=== PATIENT | male | born 1955 | race Caucasian/White ===

== ENCOUNTER 2017-08-13 05:42 | Inpatient (IN) | payer BC ==
[2017-08-08 16:45] LABS: BASOPHILS # (AUTO) 0.1 K/uL (0.0-0.2); LYMPHOCYTES # (AUTO) 1.9 K/uL (1.0-5.5); MONOCYTES # (AUTO) 0.6 K/uL (0.0-1.0)
[2017-08-08 16:49] LABS: BASOPHILS % (AUTO) 0.9 % (0.0-2.0); EOSINOPHILS # (AUTO) 0.6 K/uL (0.0-0.4); EOSINOPHILS % (AUTO) 7.5 % (0.0-4.0); HEMOGLOBIN 14.5 g/dL (14.0-18.0); LYMPHOCYTES % (AUTO) 25.4 % (20.5-51.5); MEAN CORPUSCULAR HEMOGLOBIN 32 pg (27-31); MEAN CORPUSCULAR HGB CONC 35 % (32-36); MEAN CORPUSCULAR VOLUME 94 fL (79.0-98.0); MONOCYTES % (AUTO) 7.6 % (1.7-9.3); NEUTROPHILS # (AUTO) 4.4 K/uL (1.8-7.7); NEUTROPHILS % (AUTO) 58.6 % (40.0-70.0); PLATELET COUNT (AUTO) 318 K/uL (130-430); RED BLOOD CELL COUNT(AUTO) 4.47 MIL/uL (4.2-6.2); WHITE BLOOD COUNT (AUTO) 7.6 K/uL (4.8-10.8)
[2017-08-08 16:54] LABS: BILIRUBIN,URINE NEGATIVE (NEGATIVE); BLOOD, URINE NEGATIVE (NEGATIVE); CLARITY/URINE CLEAR (CLEAR); COLOR,URINE YELLOW (YELLOW); GLUCOSE,URINE NEGATIVE (NEGATIVE); KETONES,URINE NEGATIVE (NEGATIVE); LEUKOCYTE ESTERASE ,URINE NEGATIVE (NEGATIVE); NITRITE, URINE NEGATIVE (NEGATIVE); PROTEIN URINE NEGATIVE (NEGATIVE); UROBILINOGEN,URINE 0.2 (0.2-1.0)
[2017-08-08 16:58] LABS: CALCIUM 8.8 mg/dL (8.4-11.0); CREATININE 0.93 mg/dL (0.55-1.30); POTASSIUM 3.9 mmol/L (3.5-5.1)
[2017-08-08 17:02] LABS: PROTHROMBIN TIME 10.4 SECS (9.5-12.5)
[~2017-08-13] VITALS: Ht 188 cm; Wt 106.6 kg
[~2017-08-13 05:42] MED LIST: LOSA50TA3 PO
[2017-08-13] MEDS ORDERED: CEFAZOLIN 2 GM IVPB PREMIX 50 ML IV ONE ×2 (06:02→07:00)
[2017-08-13] MEDS ORDERED: CELECOXIB 200 MG CAPSULE ONE (06:03)
[2017-08-13] MEDS ORDERED: GABAPENTIN 300 MG CAPSULE ONE (06:03)
[2017-08-13] MEDS ORDERED: ACETAMINOPHEN 500 MG TABLET ONE (06:04)
[2017-08-13] MEDS ORDERED: oxyCODONE HCL 10 MG TAB.ER.12H PO ONE ×2 (06:04→07:00)
[2017-08-13] MEDS ORDERED: TRANEXAMIC ACID 650 MG TABLET ONE (06:05)
[2017-08-13] MEDS ORDERED: LevALBUTEROL HCL 1.25 MG/0.5 ML *CONC.* VIAL.NEB (XOPENEX CONC.) INH ONE ×2 (06:15→06:26)
[2017-08-13] MEDS ORDERED: LIDOCAINE 2%, 20 ML MDV INJ ONE (06:35)
[2017-08-13] MEDS ORDERED: DEXAMETHASONE SOD PHOSPHATE 4 MG/ML VIAL IVP ONE (06:35)
[2017-08-13] MEDS ORDERED: SODIUM BICARBONATE 4% (NEUT) 5 ML VIAL INJ ONE (06:35)
[2017-08-13] MEDS ORDERED: ONDANSETRON HCL 4 MG/2 ML VIAL IVP ONE (06:35)
[2017-08-13] MEDS ORDERED: METOCLOPRAMIDE HCL 10 MG/2 ML VIAL IVP ONE (06:35)
[2017-08-13] MEDS ORDERED: EPINEPHrine 1 MG/ML AMP IVP ONE (06:35)
[2017-08-13] MEDS ORDERED: ISOSULFAN BLUE 5 ML VIAL (LYMPHAZURIN) INJ ONE (06:35)
[2017-08-13] MEDS ORDERED: ROPIVACAINE 0.2% (NAROPIN) PF SOLUTION 100 ML BOTTLE EP ONE (06:35)
[2017-08-13] MEDS ORDERED: ROCURONIUM BROMIDE 10 MG/ML (ZEMURON) IV ONE (06:35)
[2017-08-13] MEDS ORDERED: MIDAZOLAM HCL 5 MG/5 ML VIAL IVP ONE (06:35)
[2017-08-13] MEDS ORDERED: fentaNYL CITRATE 250 MCG/5 ML AMP IV ONE (06:35)
[2017-08-13] MEDS ORDERED: ROPIVACAINE HCL/PF 5 MG/ML 0.5% 30 ML VIAL INJ ONE (06:35)
[2017-08-13] MEDS ORDERED: SEVOFLURANE 15 MIN GAS INH ONE (06:35)
[2017-08-13] MEDS ORDERED: TRANEXAMIC ACID 1,000 MG/10 ML VIAL IV ONE (06:35)
[2017-08-13] MEDS ORDERED: GENTAMICIN 80 mg/ NS 100 mL IVPB IV ONE (06:35)
[2017-08-13] MEDS ORDERED: fentaNYL CITRATE/PF 100 MCG/2 ML AMP IVP ONE (06:35)
[2017-08-13] MEDS ORDERED: NS 50 ML BAG IV ONE (06:35)
[2017-08-13] MEDS ORDERED: PROPOFOL 200MG/ 20ML VIAL (DIPRIVAN) IV ONE (06:35)
[2017-08-13] MEDS ORDERED: KETOROLAC TROMETHAMINE 30 MG VIAL IVP ONE (06:35)
[2017-08-13] MEDS ORDERED: MORPHINE SULFATE 10MG/10ML PF AMP EP ONE (06:35)
[2017-08-13] MEDS ORDERED: ACETAMINOPHEN 500 MG TABLET PO ONE (07:00)
[2017-08-13] MEDS ORDERED: LR 1,000 ML IV ONE (07:00)
[2017-08-13] MEDS ORDERED: GABAPENTIN 300 MG CAPSULE PO ONE (07:00)
[2017-08-13] MEDS ORDERED: CELECOXIB 200 MG CAPSULE PO ONE (07:00)
[2017-08-13] MEDS ORDERED: TRANEXAMIC ACID 650 MG TABLET PO ONE (07:00)
[2017-08-13] MEDS ORDERED: KETOROLAC TROMETHAMINE 30 MG VIAL ONE (07:17)
[2017-08-13] MEDS ORDERED: POLYMYXIN 500,000/BACIT.10,000 UNITS in NS IRR 1 L IR ONE (07:18)
[2017-08-13] MEDS ORDERED: LR 1,000 ML IV SCH (08:14)
[2017-08-13] MEDS ORDERED: ROPIVACAINE 0.2% 100 ML INJ SCH (08:14)
[2017-08-13] MEDS ORDERED: HYDROmorphone 1 MG INJ. 1 MG/ML AMPUL IVP PRN (08:15)
[2017-08-13] MEDS ORDERED: MEPERIDINE HCL/PF 25 MG/ML DISP.SYRIN IVP PRN (08:15)
[2017-08-13] MEDS ORDERED: HYDROcodone/ACETAMIN 10-325 MG TAB PO PRN (08:15)
[2017-08-13] MEDS ORDERED: HYDROmorphone 2 MG/ML VIAL IVP PRN ×2 (08:15)
[2017-08-13] MEDS ORDERED: oxyCODONE HCL 5 MG TABLET PO PRN ×2 (09:30)
[2017-08-13] MEDS ORDERED: KETOROLAC TROMETHAMINE 30 MG VIAL IVP PRN (09:30)
[2017-08-13] MEDS ORDERED: MORPHINE 4 MG/ML INJ. SYRINGE IVP PRN (09:30)
[2017-08-13] MEDS ORDERED: DIPHENHYDRAMINE HCL 50 MG CAPSULE PO PRN (09:30)
[2017-08-13] MEDS ORDERED: PROMETHAZINE HCL 25 MG/ML AMP IVP PRN (09:30)
[2017-08-13] MEDS ORDERED: ONDANSETRON HCL 4 MG/2 ML VIAL IVP PRN (09:30)
[2017-08-13 10:45] VITALS: BP_SYST 114
[2017-08-13 11:06] VITALS: BP_SYST 114
[2017-08-13] MEDS: D5LR 1,000 ML IV SCH ×2 (11:55→21:56)
[2017-08-13] MEDS: CEFAZOLIN 1 GM IVPB PREMIX 50 ML IV SCH ×2 (13:37→21:55)
[2017-08-13] MEDS: ACETAMINOPHEN 500 MG TABLET PO SCH ×2 (15:25→20:29)
[2017-08-13 17:31] VITALS: BP_SYST 114
[2017-08-13] MEDS: ROPIVACAINE 0.2% 550 ML INJ SCH (18:34)
[2017-08-13 19:45] VITALS: BP_SYST 128
[2017-08-13] MEDS: CELECOXIB 200 MG CAPSULE PO SCH (20:28)
[2017-08-13] MEDS: GABAPENTIN 300 MG CAPSULE PO SCH (20:28)
[2017-08-13 23:54] VITALS: BP_SYST 119
[2017-08-14 03:38] VITALS: BP_SYST 115
[2017-08-14] MEDS: D5LR 1,000 ML IV SCH ×3 (05:57→23:55)
[2017-08-14] MEDS: CEFAZOLIN 1 GM IVPB PREMIX 50 ML IV SCH (05:57)
[2017-08-14 06:21] LABS: BASOPHILS % (AUTO) 0.2 % (0.0-2.0); EOSINOPHILS % (AUTO) 0.1 % (0.0-4.0); HEMATOCRIT 34.5 % (36-54); HEMOGLOBIN 11.7 g/dL (14.0-18.0); LYMPHOCYTES # (AUTO) 0.8 K/uL (1.0-5.5); MEAN CORPUSCULAR HEMOGLOBIN 32 pg (27-31); MEAN CORPUSCULAR HGB CONC 34 % (32-36); MEAN CORPUSCULAR VOLUME 94 fL (79.0-98.0); MONOCYTES % (AUTO) 7.3 % (1.7-9.3); NEUTROPHILS # (AUTO) 12.3 K/uL (1.8-7.7); NEUTROPHILS % (AUTO) 86.4 % (40.0-70.0); PLATELET COUNT (AUTO) 240 K/uL (130-430); RED BLOOD CELL COUNT(AUTO) 3.66 MIL/uL (4.2-6.2); RED CELL DISTRIBUTION WIDTH 11.7 % (9.0-15.0)
[2017-08-14 06:27] LABS: CALCIUM 8.5 mg/dL (8.4-11.0); CREATININE 0.91 mg/dL (0.55-1.30); POTASSIUM 3.9 mmol/L (3.5-5.1)
[2017-08-14 07:09] LABS: WHITE BLOOD COUNT (AUTO) 14.1 K/uL (4.8-10.8)
[2017-08-14 07:57] VITALS: BP_SYST 135
[2017-08-14] MEDS: LOSARTAN POTASSIUM 50 MG TABLET (COZAAR) PO SCH (08:19)
[2017-08-14] MEDS: ACETAMINOPHEN 500 MG TABLET PO SCH ×3 (08:20→21:19)
[2017-08-14] MEDS: CELECOXIB 200 MG CAPSULE PO SCH ×2 (08:20→21:18)
[2017-08-14] MEDS: ROPIVACAINE 0.2% 550 ML INJ SCH (09:18)
[2017-08-14] MEDS: RIVAROXABAN 10 MG TABLET PO SCH (10:00)
[2017-08-14 11:26] VITALS: BP_SYST 129
[2017-08-14] MEDS: HYDROcodone/ACETAMIN 10-325 MG TAB PO PRN (12:17)
[2017-08-14 15:30] VITALS: BP_SYST 111
[2017-08-14 20:00] VITALS: BP_SYST 143
[2017-08-14] MEDS: GABAPENTIN 300 MG CAPSULE PO SCH (21:18)
[2017-08-14 23:48] VITALS: BP_SYST 131
[2017-08-15 03:51] VITALS: BP_SYST 125
[2017-08-15 06:37] LABS: BASOPHILS % (AUTO) 0.6 % (0.0-2.0); EOSINOPHILS # (AUTO) 0.3 K/uL (0.0-0.4); EOSINOPHILS % (AUTO) 3.7 % (0.0-4.0); HEMATOCRIT 33.7 % (36-54); HEMOGLOBIN 11.6 g/dL (14.0-18.0); LYMPHOCYTES # (AUTO) 1.7 K/uL (1.0-5.5); LYMPHOCYTES % (AUTO) 20.1 % (20.5-51.5); MEAN CORPUSCULAR HEMOGLOBIN 32 pg (27-31); MEAN CORPUSCULAR HGB CONC 34 % (32-36); MEAN CORPUSCULAR VOLUME 94 fL (79.0-98.0); MONOCYTES # (AUTO) 1.1 K/uL (0.0-1.0); MONOCYTES % (AUTO) 12.7 % (1.7-9.3); NEUTROPHILS # (AUTO) 5.2 K/uL (1.8-7.7); NEUTROPHILS % (AUTO) 62.9 % (40.0-70.0); PLATELET COUNT (AUTO) 212 K/uL (130-430); RED BLOOD CELL COUNT(AUTO) 3.59 MIL/uL (4.2-6.2); RED CELL DISTRIBUTION WIDTH 12.2 % (9.0-15.0)
[2017-08-15 06:41] LABS: CALCIUM 8.7 mg/dL (8.4-11.0); CREATININE 0.85 mg/dL (0.55-1.30)
[2017-08-15 06:57] LABS: WHITE BLOOD COUNT (AUTO) 8.3 K/uL (4.8-10.8)
[2017-08-15] MEDS: HYDROcodone/ACETAMIN 10-325 MG TAB PO PRN (08:11)
[2017-08-15] MEDS: CELECOXIB 200 MG CAPSULE PO SCH (08:11)
[2017-08-15] MEDS: ACETAMINOPHEN 500 MG TABLET PO SCH ×2 (08:12→13:53)
[2017-08-15] MEDS: LOSARTAN POTASSIUM 50 MG TABLET (COZAAR) PO SCH (08:12)
[2017-08-15 08:16] VITALS: BP_SYST 148
[2017-08-15] MEDS: ROPIVACAINE 0.2% 550 ML INJ SCH (09:18)
[2017-08-15] MEDS: RIVAROXABAN 10 MG TABLET PO SCH (10:07)
[2017-08-15 11:21] VITALS: BP_SYST 125
[2017-08-15 13:24] VITALS: BP_SYST 133
== END 2017-08-15 15:15 | disposition home or self-care (01) | DRG 470 ==
LOC: SMU 05:42 → STU 10:47 → SMU 08-14 10:44
PROVIDERS: ADMIT Orthopaedic Surgery; ATTEND Orthopaedic Surgery
PROC: 3E0T3BZ Introduction of Anesthetic Agent into Peripheral Nerves and Plexi, Percutaneous Approach (ICD-10-PCS; 2017-08-13)
PROC: 0SRC0J9 Replacement of Right Knee Joint with Synthetic Substitute, Cemented, Open Approach (ICD-10-PCS; principal; 2017-08-13 07:30)
DX: M17.11 Unilateral primary osteoarthritis, right knee (principal); I10 Essential (primary) hypertension; Z87.891 Personal history of nicotine dependence
CPT/HCPCS: 36415; 71020-TC; 80048; 81003; 85025; 85610-TC; 85730-TC; 87081; 88305; 88311; 94640; 97039; 97110-GP; 97116-GP; 97530-GP; C1713; C1776; J0171; J0690; J1100; J1580; J1885; J2001; J2250; J2274; J2405; J2704; J2765; J2795; J3010; J3490; J7120; Q9968